=== PATIENT | male | born 1980 | race Two or more races ===

== ENCOUNTER 2018-03-29 09:05 | Emergency (ER) | payer OTHER ==
[~2018-03-29] VITALS: Ht 162.6 cm; Wt 102.5 kg
[2018-03-29 09:10] VITALS: BP 162/93
== END 2018-03-29 10:06 | disposition home or self-care (01) ==
LOC: ED 10:00
DX: S61.011D Laceration without foreign body of right thumb without damage to nail, subsequent encounter (principal)
CPT/HCPCS: 99283